=== PATIENT | male | born 1980 | race Caucasian/White ===

== ENCOUNTER 2020-06-04 05:21 | Emergency (ER) | payer BC, OTHER ==
[~2020-06-04 05:21] MED LIST: LODINE CAP 300300 MG PO; PENVEE K 500 M500 MG PO; VENTOLIN HFA 66.7 GM INH; ZITHROMAX250 MG PO
[2020-06-04 06:15] LABS: HEMOGLOBIN 18.4 gm/dl (14.0-17.5); RED BLOOD COUNT 5.46 M/UL (4.20-5.50); WHITE BLOOD COUNT 9.3 K/UL (4.5-11.0)
[2020-06-04 06:41] LABS: BUN/CREATININE RATIO 15 (0-10)
[2020-06-04] MEDS ORDERED: MOTION RELIEF25 MG PO (09:09)
[2020-06-04] MEDS ORDERED: DEBROX15 ML AU (09:09)
== END 2020-06-04 09:34 | disposition home or self-care (01) ==
LOC: ER1 05:21
PROVIDERS: Family Medicine
DX: H61.23 Impacted cerumen, bilateral (principal); R42 Dizziness and giddiness; F17.200 Nicotine dependence, unspecified, uncomplicated; F17.290 Nicotine dependence, other tobacco product, uncomplicated
CPT/HCPCS: 70450; 71045; 80053; 82550; 82553; 83735; 83874; 84484; 85025; 93005; 99284

== ENCOUNTER 2021-06-03 06:24 | Emergency (ER) | payer BC ==
[~2021-06-03 06:24] MED LIST changes: +DEBROX15 ML AU; +MOTION RELIEF25 MG PO
[2021-06-03] MEDS ORDERED: CYCLOBENZAPRINE10 MG PO (07:03)
[2021-06-03] MEDS ORDERED: IBUPROFEN600 MG PO (07:03)
== END 2021-06-03 07:40 | disposition home or self-care (01) ==
LOC: ER1 06:24
DX: M25.512 Pain in left shoulder (principal)
CPT/HCPCS: 96372; 99283; J1100; J1885